=== PATIENT | male | born 1965 | race Caucasian/White ===

== ENCOUNTER 2020-12-08 15:03 | Outpatient (CLI) | payer BC | END 2020-12-08 15:04 | disposition home or self-care (01) | LOC: BICMRI 15:03 | PROVIDERS: ATTEND Physician Assistant | DX: M54.2 Cervicalgia (principal); M47.812 Spondylosis without myelopathy or radiculopathy, cervical region; M48.02 Spinal stenosis, cervical region | CPT/HCPCS: 70210; 72141 ==

== ENCOUNTER 2021-01-28 07:52 | Outpatient (CLI) | payer BC | END 2021-01-28 07:53 | disposition home or self-care (01) | LOC: TBSIIMAG 07:52 | PROVIDERS: ATTEND Family Medicine | DX: R20.2 Paresthesia of skin (principal) | CPT/HCPCS: 70551 ==

== ENCOUNTER 2021-08-28 09:52 | Outpatient (CLI) | payer BC ==
[~2021-08-28 09:52] MED LIST: Iopamidol-370 76% 500 ML 1 ML ONE
== END 2021-08-28 09:53 | disposition home or self-care (01) ==
LOC: BICCT 09:52
PROVIDERS: ATTEND Physician Assistant Medical
DX: K64.8 Other hemorrhoids (principal); G43.909 Migraine, unspecified, not intractable, without status migrainosus; R10.9 Unspecified abdominal pain; R63.4 Abnormal weight loss; R16.0 Hepatomegaly, not elsewhere classified; N28.1 Cyst of kidney, acquired
CPT/HCPCS: 74177; Q9967